=== PATIENT | male | born 1985 | race Caucasian/White ===

== ENCOUNTER 2024-02-10 06:50 | Emergency (ER) | payer BC ==
[2024-02-10] MEDS ORDERED: NA CHLORIDE 0.9% 1,000 ML ONE (07:20)
[2024-02-10] MEDS ORDERED: FAMOTIDINE 20 MG/2 ML VIAL IV ONE (07:20)
[2024-02-10 07:42] LABS: Absolute Basophils 0.1 K/uL (0-0.5); Absolute Eosinophils 0.1 K/uL (0-0.5); Absolute Monocytes 0.6 K/uL (0.1-1.3); Absolute Neutrophil 5.2 K/uL (1.8-8.0); Basophils % 0.7 % (0-1.3); Eosinophils % 1.6 % (0-4.4); Hematocrit 44.6 % (39.6-49.0); Hemoglobin 15.7 g/dL (13.6-17.9); MCH 30.7 pg (27.0-35.0); MCHC 35.3 g/dL (32.0-36.0); MCV 87.1 fL (80-100); MPV 7.3 fL (7.6-11.3); Monocytes % 7.5 % (3.3-12.3); Neutrophils % 65.2 % (41.7-73.7); Nucleated Red Blood Cells % 0.6 % (0-0); Platelets 323 thou/uL (152-406); RBC Red Blood Cell Count 5.12 M/uL (4.33-5.43); Red Cell Distribution Width 12.8 % (12.1-15.2)
[2024-02-10 07:52] LABS: Albumin 4.7 g/dL (3.4-5.0); Albumin/Globulin Ratio 1.2 (1.1-1.8); Anion Gap 10.9 mEq/L (5.0-15.0); Bilirubin Total 0.6 mg/dL (0.2-1.0); Globulin 3.8 g/dL (2.3-3.5); Potassium 3.9 mEq/L (3.5-5.1); Protein, Total 8.5 g/dL (6.4-8.2)
--- NOTE | 2024-02-10 08:11 | RAD REPORT ---
EXAM DESCRIPTION: CTAbdomen Pelvis W Contrast - 02/10/2024 7:55 am CLINICAL HISTORY: Abdominal pain. ABD PAIN COMPARISON: CT ABD PELVIS W CONTRAST dated 02/02/2014 TECHNIQUE: Biphasic CT imaging of the abdomen and pelvis was performed with 100 ml non-ionic IV cont rast. All CT scans are performed using dose optimization technique as appropriate and may include automated exposure control or mA/KV adjustment according to patient size. FINDINGS: The lung bases are clear. The liver, spleen, pancreas, adrenal glands and kidneys are within normal limits. No bowel obstruction, free air, free fluid or abscess. Diffuse fluid distention in a nonspecific ramírez er of both large and small bowel noted. The appendix is normal. No evidence of significant lymphaden opathy. No suspicious bony findings. IMPRESSION: No acute intra-abdominal or pelvic finding. Diffuse fluid distention of large and small bowel a non-organized manner could be related to ileus or diarrheal condition.
[2024-02-10 08:29] LABS: Sqamous Epithelial None Seen /HPF (None Seen); Urine Bacteria None Seen /HPF (<20); Urine Bilirubin NEGATIVE (Negative); Urine Blood Negative (Negative); Urine Clarity Clear (Clear); Urine Color Light-Yellow (Yellow); Urine Culture Reflex Order NOT NEEDED; Urine Glucose NEGATIVE (Negative); Urine Ketones NEGATIVE (Negative); Urine Microscopic Reflex YN ORDER UMIC; Urine Mucus Slight /HPF (None Seen); Urine Nitrite NEGATIVE (Negative); Urine Protein TRACE (Negative); Urine RBC None Seen /HPF (None Seen); Urine Urobilinogen Normal (Normal); Urine WBC <5 /HPF (<5); Urine pH 5.5 (5.0-7.0)
[2024-02-10 08:31] LABS: Specific Gravity > 1.030 (1.005-1.030)
--- NOTE | 2024-02-10 08:41 | ER ---
Nurse's Notes [facility] Name: Juan C Mcduffie Jr Age: 38 yrs Sex: Male : 1985 Arrival Date: 02/10/2024 Time: 06:50 Bed 13 Private MD: Diagnosis: Diarrhea, unspecified Presentation: 02/09 07:12 Chief complaint: Patient states: Abdominal pain with nausea and diarrhea since ll1 yesterday at 1600. No fever. Coronavirus screen: Client denies travel out of the [place] in the last 14 days. diarrhea, nausea, Client presents with at least one sign or symptom that may indicate coronavirus-19. Standard/surgical mask placed on the client. Ebola Screen: Patient denies travel to an Ebola-affected area in the 21 days before illness onset. Initial Sepsis Screen: Does the patient meet any 2 criteria? No. Patient's initial sepsis screen is negative. Does the patient have a suspected source of infection? No. Patient's initial sepsis screen is negative. Risk Assessment: Do you want to hurt yourself or someone else? Patient reports no desire to harm self or others. Onset of symptoms was February 09, 2024. 07:12 Method Of Arrival: Ambulatory ll1 07:12 Acuity: PAT 3 ll1 Triage Assessment: 07:13 General: Appears in no apparent distress. Behavior is calm, cooperative, appropriate ll1 for age. Pain: Complains of pain in abdomen Quality of pain is described as aching. GI: Reports lower abdominal pain, upper abdominal pain, cramping, diarrhea, indigestion, nausea. Historical: - Allergies: 07:10 No Known Allergies; ll1 - PMHx: 07:10 H pylori; ll1 07:15 Migraine; ll1 - PSHx: 07:15 chest tube pneumothorax; ll1 - Immunization history:: Adult Immunizations up to date. - Infectious Disease History:: Denies. - Social history:: Smoking status: Patient denies any tobacco usage or history of. Screenin:17 [facility] ED Fall Risk Assessment (Adult) History of falling in the last 3 months, mb9 including since admission No falls in past 3 months (0 pts) Confusion or Disorientation No (0 pts) Intoxicated or Sedated No (0 pts) Impaired Gait No (0 pts) Mobility Assist Device Used No (0 pt) Altered Elimination No (0 pt) Score/Fall Risk Level 0 - 2 = Low Risk Oriented to surroundings, Maintained a safe environment, Educated pt \T\ family on fall prevention, incl call for assistance when getting out of bed. Abuse screen: Denies threats or abuse. Nutritional screening: No deficits noted. Tuberculosis screening: No symptoms or risk factors identified. Assessment: 07:31 General: Appears in no apparent distress. Behavior is calm, cooperative. Pain: mb9 Complains of pain in abdomen Pain does not radiate. Pain currently is 6 out of 10 on a pain scale. Quality of pain is described as throbbing, Pain began suddenly, Is continuous. Neuro: Borrego Agitation-Sedation Scale (RASS): 0 - Alert and Calm Level of Consciousness is awake, alert, obeys commands, Oriented to person, place, time, situation, Appropriate for age. Cardiovascular: Patient's skin is warm and dry. Respiratory: Airway is patent Respiratory effort is even, unlabored, Respiratory pattern is regular, symmetrical. GI: Abdomen is flat, non-distended, Bowel sounds present X 4 quads. Abd is soft and non tender X 4 quads. Reports diarrhea. : No signs and/or symptoms were reported regarding the genitourinary system. EENT: No signs and/or symptoms were reported regarding the EENT system. Derm: Skin is pink, warm \T\ dry. Musculoskeletal: Range of motion: intact in all extremities. 08:51 Reassessment: No changes from previously documented assessment. Patient and/or family mb9 updated on plan of care and expected duration. Pain level reassessed. Patient is alert, oriented x 3, equal unlabored respirations, skin warm/dry/pink. Vital Signs: 07:12 BP 133 / 99; Pulse 77; Resp 16; Temp 97.6; Pulse Ox 100% on R/A; Weight 86.18 kg; ll1 Height 5 ft. 10 in. ; Pain 8/10; 08:36 Pulse 70; Resp 16; Pulse Ox 100% ; mb9 07:12 Body Mass Index 27.26 (86.18 kg, 177.8 cm) ll1 07:12 Pain Scale: Adult ll1 ED Course: 06:52 Patient arrived in ED. gm2 07:06 Edmundo Cerna DO is Attending Physician. ms3 07:10 Arm band placed on Patient placed in an exam room, on a stretcher. ll1 07:13 Triage completed. ll1 07:17 Kyle Mitchell, RN is Primary Nurse. ll1 07:17 Primary Nurse role handed off by Kyle Mitchell RN mb9 07:17 Abby Baer, RN is Primary Nurse. mb9 07:18 Placed in gown. Bed in low position. Call light in reach. Side rails up X 1. Provided mb9 Education on: press call light if needing anything. Client placed on continuous cardiac and pulse oximetry monitoring. NIBP monitoring applied. 07:31 Initial lab(s) drawn, by me, sent to lab. Inserted saline lock: 20 gauge in right mb9 antecubital area, using aseptic technique. Blood collected. Flushed with 10 mL NS. 07:32 No provider procedures requiring assistance completed. mb9 07:55 CT Abd/Pelvis - IV Contrast Only In Process Unspecified. EDMS 08:38 IV discontinued, intact, bleeding controlled, No redness/swelling at site. Pressure mb9 dressing applied. 08:41 Raymond Morillo DO is Referral Physician. ms3 Administered Medications: 07:30 Drug: NS 0.9% IV 1000 ml IV at 1 bolus Per protocol; 1000 mL bolus Route: IV; Rate: 1 mb9 bolus; Site: right antecubital; 08:32 Follow up: Response: No adverse reaction; IV Status: Completed infusion mb9 07:30 Drug: Famotidine IVP 20 mg IVP once; dilute with 10 mL 0.9% NaCl; give over 2 minutes mb9 Route: IVP; Site: right antecubital; 07:53 Follow up: Response: No adverse reaction mb9 Medication: 07:18 VIS not applicable for this client. mb9 Outcome: 08:41 Discharge ordered by . ms3 08:51 Discharged to home ambulatory, with family, mb9 08:51 Condition: stable 08:51 Discharge instructions given to patient, Instructed on discharge instructions, follow up and referral plans. Demonstrated understanding of instructions, follow-up care, 08:51 Patient left the ED. mb9 Signatures: Dispatcher [employer] EDMS Kyle Mitchell RN RN ll1 Edmundo Cerna DO DO ms3 Abby Baer RN RN mb9 Betsy Dominguez 2
--- NOTE | 2024-02-10 08:41 | EDPHYS ---
Physician Documentation [facility] Name: Juan C Mcduffie Jr Age: 38 yrs Sex: Male : 1985 Arrival Date: 02/10/2024 Time: 06:50 Bed 13 Private MD: ED Physician Edmundo Cerna HPI: 02/09 07:19 This 38 yrs old Male presents to ER via Ambulatory with complaints of Abdominal Pain. az3 07:19 38-year-old male with past medical history of H. pylori and migraines [place] [facility] [place] for abdominal pain that began last night. Patient states he had approximately 30 bouts of diarrhea overnight. He rates his discomfort a 7/10 located in the lower abdomen. The pain does not radiate. He denies fevers, chills, nausea, vomiting. Historical: - Allergies: 07:10 No Known Allergies; ll1 - PMHx: 07:10 H pylori; ll1 07:15 Migraine; ll1 - PSHx: 07:15 chest tube pneumothorax; ll1 - Immunization history:: Adult Immunizations up to date. - Infectious Disease History:: Denies. - Social history:: Smoking status: Patient denies any tobacco usage or history of. ROS: 07:19 Constitutional: Negative for fever, and chills. Cardiovascular: Negative for chest ms3 pain, and palpitations. Respiratory: Negative for shortness of breath, cough, wheezing, and pleuritic chest pain, 07:19 MS/Extremity: Negative for injury and deformity, Skin: Negative for injury, rash, and discoloration, 07:19 Abdomen/GI: Positive for abdominal pain, diarrhea, Exam: 07:19 Constitutional: This is a well developed, well nourished patient who is awake, alert, ms3 and in no acute distress. Chest/axilla: Normal chest wall appearance and motion. Nontender with no deformity. Cardiovascular: Regular rate and rhythm with a normal S1 and S2. No gallops, murmurs, or rubs. Normal PMI, no JVD. No pulse deficits. Respiratory: Lungs have equal breath sounds bilaterally, clear to auscultation and percussion. No rales, rhonchi or wheezes noted. No increased work of breathing, no retractions or nasal flaring. 07:19 Skin: Warm, dry with normal turgor. Normal color with no rashes, no lesions, and no evidence of cellulitis. MS/ Extremity: Pulses equal, no cyanosis. Neurovascular intact. Full, normal range of motion. 07:19 Abdomen/GI: Inspection: abdomen appears normal, Bowel sounds: normal, Palpation: moderate abdominal tenderness, in the right lower quadrant and left lower quadrant, Vital Signs: 07:12 BP 133 / 99; Pulse 77; Resp 16; Temp 97.6; Pulse Ox 100% on R/A; Weight 86.18 kg; ll1 Height 5 ft. 10 in. ; Pain 8/10; 08:36 Pulse 70; Resp 16; Pulse Ox 100% ; mb9 07:12 Body Mass Index 27.26 (86.18 kg, 177.8 cm) ll1 07:12 Pain Scale: Adult ll1 MDM: 07:18 Patient medically screened. ms3 07:19 Differential diagnosis: appendicitis, bowel obstruction, diverticulitis, gastritis. ms3 10:47 Data reviewed: vital signs, nurses notes, lab test result(s), radiologic studies, and ms3 as a result, I will discharge patient. I considered the following discharge prescriptions or medication management in the emergency department Medications were administered in the Emergency Department. See MAR. Counseling: I had a detailed discussion with the patient and/or guardian regarding the historical points, exam findings, and any diagnostic results supporting the discharge/admit diagnosis, lab results, radiology results, the need for outpatient follow up, to return to the emergency department if symptoms worsen or persist or if there are any questions or concerns that arise at home. Special discussion: Based on the patient's Hx, exam, and Dx evaluation, there is no indication for emergent surgery or inpatient Tx. It is understood by the patient/guardian that if the Sx's persist or worsen they need to return immediately for re-evaluation. ED course: Discussed labs and CT findings with patient. Patient to follow-up with primary care physician in 2 to 3 days. All questions were answered. Return precautions discussed include worsening symptoms, or any other concerns. On reevaluation patient is alert and oriented x 4, no apparent distress, nontoxic-appearing, ambulatory in the emergency department. 02/09 07:19 Order name: CBC with Diff; Complete Time: 08:13 ms3 02/09 07:19 Order name: CMP; Complete Time: 08:13 ms3 02/09 07:19 Order name: Lipase; Complete Time: 08:13 ms3 02/09 07:19 Order name: Urinalysis w/ reflexes; Complete Time: 08:33 ms3 02/09 07:19 Order name: CT Abd/Pelvis - IV Contrast Only; Complete Time: 08:13 ms3 02/09 07:19 Order name: IV Saline Lock; Complete Time: 07:30 ms3 02/09 07:19 Order name: Labs collected and sent; Complete Time: 07:30 ms3 Administered Medications: 07:30 Drug: NS 0.9% IV 1000 ml IV at 1 bolus Per protocol; 1000 mL bolus Route: IV; Rate: 1 mb9 bolus; Site: right antecubital; 08:32 Follow up: Response: No adverse reaction; IV Status: Completed infusion mb9 07:30 Drug: Famotidine IVP 20 mg IVP once; dilute with 10 mL 0.9% NaCl; give over 2 minutes mb9 Route: IVP; Site: right antecubital; 07:53 Follow up: Response: No adverse reaction mb9 Disposition Summary: 02/10/24 08:41 Discharge Ordered Notes: Location: Home ms3 Condition: Stable ms3 Diagnosis - Diarrhea, unspecified ms3 Followup: ms3 - With: Raymond Morillo DO - When: 2 - 3 days - Reason: Recheck today's complaints Discharge Instructions: - Diarrhea, Adult ms3 - Discharge Summary Sheet mb9 Forms: - Medication Reconciliation Form ms3 - Antibiotic Education ms3 - Prescription Opioid Use ms3 - Patient Portal Instructions ms3 - Leadership Thank You Letter ms3 - Work release form mb9 Signatures: Dispatcher [employer] EDMS Kyle Mitchell, RN RN ll1 Edmundo Cerna DO DO ms3 Abby Baer RN RN mb9 Corrections: (The following items were deleted from the chart) 07:19 07:19 CBC+H.LAB.BRZ ordered. EDMS EDMS 07:19 07:19 COMPREHENSIVE METABOLIC PANEL+C.LAB.BRZ ordered. EDMS EDMS 07:19 07:19 LIPASE+C.LAB.BRZ ordered. EDMS EDMS 07:19 07:19 Urinalysis+U.LAB.BRZ ordered. EDMS EDMS 07:19 07:19 Abdomen Pelvis W Con+CT.RAD.BRZ ordered. EDMS EDMS
[2024-02-10 09:01] VITALS: BP 133/99; TEMP 97.6; O2SAT 100
== END 2024-02-10 08:51 | disposition home or self-care (01) ==
LOC: ER 06:50
DX: R19.7 Diarrhea, unspecified (principal)
CPT/HCPCS: 96361; 85025; 81001; 36415; 83690; 80053; 74177; 96374; 99284; Q9967; J7030